=== PATIENT | female | born 2000 | race Caucasian/White ===

== ENCOUNTER 2019-12-16 04:16 | Emergency (ER) | payer OTHER ==
[~2019-12-16] VITALS: Ht 177 cm; Wt 115.0 kg
[2019-12-16] MEDS ORDERED: PROMETHAZINE/ CODEINE SYRUP 5 ML UDC PO STA (04:31)
[2019-12-16] MEDS ORDERED: methylPREDNISolone 125 MG (Solu-MEDROL) VIAL IVP STA (04:31)
[2019-12-16] MEDS ORDERED: NS IV 1000 ML 1,000 ML IV STA (04:31)
--- NOTE | 2019-12-16 04:40 | ED Cough/URI ---
General Chief Complaint: Cough/Cold/Flu Symptoms Stated Complaint: COUGH Source: patient History of Present Illness Date Seen by Provider: Dec 16, 2019 Time Seen by Provider: 04:22 Initial Comments 19 yo F presenting with complaints of cough and congestion that has been going on for over a week. She was seen last week in urgent care and diagnosed with influenza based off of her symptoms. She completed a 5 day course of Tamiflu but did not feel she was any better. She went back to Urgent care on Sunday and they diagnosed her with bronchitis and placed her on Amoxicillin, Tessalon Perles, and Albuterol Nebulized treatments. She has still been coughing to the point that she is not sleeping at night and has not improved. She feels that she has been running a fever but has not taken her temperature. She has not tried to get in to see her PCP, Dr. Bae, but arlin decided to come to the ED because she could not sleep. Allergies and Home Medications Allergies Coded Allergies: No Known Drug Allergies (Unverified , 12/16/19) Home Medications Prednisone 20 Mg Tab, 40 MG PO DAILY Prescribed by: CHER MEYER on 12/16/19 0557 Promethazine HCl/Codeine 5 Ml Syrup, 5 ML PO Q4H PRN for COUGH Prescribed by: CHER MEYER on 12/16/19 0557 Patient Home Medication List Home Medication List Reviewed: Yes Review of Systems Review of Systems Constitutional: chills; No diaphoresis, No dizziness; fever, malaise EENTM: hoarseness, nose congestion, throat pain (from coughing); No ear discharge, No ear pain, No epistaxis Respiratory: cough; No hemoptysis; short of breath; No stridor, No wheezing Cardiovascular: chest pain (from coughing) Gastrointestinal: no symptoms reported Genitourinary: no symptoms reported Musculoskeletal: no symptoms reported Skin: No rash Psychiatric/Neurological: Headache Past Nyonsfv-Sxoiex-Jeflrh Hx Past Med/Social Hx: Reviewed Nursing Past Med/Soc Hx Patient Social History Alcohol Use: Denies Use Recreational Drug Use: No Smoking Status: Never a Smoker 2nd Hand Smoke Exposure: No Recent Foreign Travel: No Contact w/Someone Who Travel: No Recent Hopitalizations: No Physical Abuse: No Sexual Abuse: No Past Medical History Surgeries: Yes Gallbladder Respiratory: No Cardiac: No Neurological: No Genitourinary: No Gastrointestinal: No Musculoskeletal: No Endocrine: No HEENT: No Cancer: No Psychosocial: No Integumentary: No Blood Disorders: No Physical Exam Vital Signs - First Documented 12/16/19 04:23 Temp 37.0 Pulse 105 Resp 18 B/P (MAP) 136/83 (100) Pulse Ox 99 O2 Delivery Room Air Capillary Refill : Height: '" Weight: lbs. oz. kg; BMI Method: General Appearance: WD/WN, no apparent distress HEENT: PERRL/EOMI, pharyngeal erythema; No tonsillar exudate Neck: non-tender, full range of motion, supple, normal inspection Respiratory: lungs clear, normal breath sounds, no respiratory distress, no accessory muscle use Cardiovascular: regular rate, rhythm, no edema, no gallop, no JVD, no murmur, tachycardia Gastrointestinal: normal bowel sounds, non tender, soft Extremities: normal range of motion, non-tender, normal inspection, no pedal edema, normal capillary refill Neurologic/Psychiatric: car washer II-XII nml as tested, no motor/sensory deficits, alert, oriented x 3 Skin: normal color, warm/dry Progress/Results/Core Measures Suspected Sepsis SIRS Temperature: Pulse: Respiratory Rate: Laboratory Tests 12/16/19 04:49: White Blood Count 7.2 Blood Pressure / Mean: Laboratory Tests 12/16/19 04:49: Creatinine 0.70, Platelet Count 308, Total Bilirubin 0.4 Results/Orders Lab Results Laboratory Tests Test 12/16/19 04:49 Range/Units White Blood Count 7.2 4.3-11.0 10^3/uL Red Blood Count 4.87 4.35-5.85 10^6/uL Hemoglobin 12.4 11.5-16.0 G/DL Hematocrit 40 35-52 % Mean Corpuscular Volume 82 80-99 FL Mean Corpuscular Hemoglobin 25 25-34 PG Mean Corpuscular Hemoglobin Concent 31 L 32-36 G/DL Red Cell Distribution Width 13.2 10.0-14.5 % Platelet Count 308 130-400 10^3/uL Mean Platelet Volume 10.1 7.4-10.4 FL Neutrophils (%) (Auto) 58 42-75 % Lymphocytes (%) (Auto) 30 12-44 % Monocytes (%) (Auto) 7 0-12 % Eosinophils (%) (Auto) 4 0-10 % Basophils (%) (Auto) 1 0-10 % Neutrophils # (Auto) 4.2 1.8-7.8 X 10^3 Lymphocytes # (Auto) 2.2 1.0-4.0 X 10^3 Monocytes # (Auto) 0.5 0.0-1.0 X 10^3 Eosinophils # (Auto) 0.3 0.0-0.3 10^3/uL Basophils # (Auto) 0.0 0.0-0.1 10^3/uL Sodium Level 139 135-145 MMOL/L Potassium Level 3.8 3.6-5.0 MMOL/L Chloride Level 104 98-107 MMOL/L Carbon Dioxide Level 24 21-32 MMOL/L Anion Gap 11 5-14 MMOL/L Blood Urea Nitrogen 12 7-18 MG/DL Creatinine 0.70 0.60-1.30 MG/DL Estimat Glomerular Filtration Rate > 60 BUN/Creatinine Ratio 17 Glucose Level 102 70-105 MG/DL Calcium Level 8.8 8.5-10.1 MG/DL Corrected Calcium 8.8 8.5-10.1 MG/DL Total Bilirubin 0.4 0.1-1.0 MG/DL Aspartate Amino Transf (AST/SGOT) 17 5-34 U/L Alanine Aminotransferase (ALT/SGPT) 16 0-55 U/L Alkaline Phosphatase 108 40-136 U/L Total Protein 7.1 6.4-8.2 GM/DL Albumin 4.0 3.2-4.5 GM/DL My Orders Orders - CHER MEYER MD Cbc With Automated Diff (12/16/19 04:31) Comprehensive Metabolic Panel (12/16/19 04:31) Albuterol/Ipra Inhalation Soln (Duoneb I (12/16/19 04:45) Chest Pa/Lat (2 View) (12/16/19 04:31) Ed Iv/Invasive Line Start (12/16/19 04:31) Sputum Culture (12/16/19 04:31) Monitor-Rhythm Ecg Trace Only (12/16/19 04:31) Svn Small Volume Nebulizer (12/16/19 04:31) Methylprednisolone Sod Succ (Solu-Medrol (12/16/19 04:31) Ns Iv 1000 Ml (Sodium Chloride 0.9%) (12/16/19 04:31) Promethazine/ Codeine Syrup (Phenergan W (12/16/19 04:31) Medications Given in ED Current Medications Medications Dose Ordered Sig/Erika Route Start Time Stop Time Status Last Admin Dose Admin Albuterol/ Ipratropium 3 ml ONCE ONCE INH 12/16/19 04:45 12/16/19 04:46 DC 12/16/19 04:45 3 ML Vital Signs/I&O 12/16/19 04:23 Temp 37.0 Pulse 105 Resp 18 B/P (MAP) 136/83 (100) Pulse Ox 99 O2 Delivery Room Air Capillary Refill : Progress Note #1: Progress Note Will check basic labs and CXR. Give duoneb breathing treatment to see if that helps with her cough and shortness of breath sensation. She is saturating 100% on room air. Give solumedrol 125 mg IV to help with inflammation and cough. Order Phenergan with codeine for cough. IVF 1 L NS bolus for hydration since her HR is over 100, especially with movement or exertion. Progress Note #2: Time: 05:34 Progress Note On my review of her 2 view CXR she has no definite infiltrate, effusion or cardiomegaly. Her CBC is normal without acute significant abnormality. Chemistry is pending. She reports she is still coughing but is tired from the cough medicine. Progress Note #3: Time: 05:49 Progress Note Reviewed with the patient the negative results. will continue steroid and phenergan with codeine at home. Push fluids and rest. Check with clinic if still not improving Diagnostic Imaging Diagonstic Imaging: Xray Plain Films/CT/US/NM/MRI: chest Comments On my review of her 2 view cxr she has no definite infiltrate or effusion or cardiomegaly Departure Impression Primary Impression: Upper respiratory infection with cough and congestion Disposition: HOME, SELF-CARE Condition: Stable Departure-Patient Inst. Decision time for Depature: 05:54 Referrals: GABRIELLE BAE DO (PCP/Family) Primary Care Physician Patient Instructions: Cough, Adult (DC), Viral Upper Respiratory Infection, Adult (DC) Add. Discharge Instructions: Try the different cough medicine to help you rest better. The steroid should help with your cough and congestion as well. Use a humidifier or vaporizer at the bedside to help keep your airways moist when you are sleeping. This will help with your cough and the tightness and inflammation in your chest. Check back with Dr. Bae in the clinic if still not improving with treatment All discharge instructions reviewed with patient and/or family. Voiced understanding. Scripts Prednisone (Prednisone) 20 Mg Tab 40 MG PO DAILY for cough/congestion for 5 Days, #10 TAB 0 Refills Prov: CHER MEYER MD 12/16/19 Promethazine HCl/Codeine (Prometh-Codein 6.25-10 mg/5 ml) 5 Ml Syrup 5 ML PO Q4H PRN for COUGH for 5 Days, #120 ML 0 Refills Prov: CHER MEYER MD 12/16/19 Work/School Note: Work Release Form Date Seen in the Emergency Department: Dec 16, 2019 Return to Work: Dec 19, 2019 Restrictions: No Restrictions CHER MEYER MD Dec 16, 2019 04:40
[2019-12-16] MEDS ORDERED: RT-ALBUTEROL/IPRATROPIUM 3 ML (DUONEB) VIAL INH ONE (04:45)
[2019-12-16 05:16] LABS: HEMATOCRIT 40 % (35-52); HEMOGLOBIN 12.4 G/DL (11.5-16.0); MEAN CORPUSCULAR HEMOGLOBIN 25 PG (25-34); WHITE BLOOD COUNT 7.2 10^3/uL (4.3-11.0)
[2019-12-16 05:18] LABS: BASOPHILS % (AUTO) 1 % (0-10); EOSINOPHILS % (AUTO) 4 % (0-10); MEAN CORPUSCULAR HGB CONC 31 G/DL (32-36); MEAN CORPUSCULAR VOLUME 82 FL (80-99); MEAN PLATELET VOLUME 10.1 FL (7.4-10.4); MONOCYTES % (AUTO) 7 % (0-12); NEUTROPHILS % (AUTO) 58 % (42-75); PLATELET COUNT 308 10^3/uL (130-400); RED CELL DISTRIBUTION WIDTH 13.2 % (10.0-14.5)
[2019-12-16 05:20] LABS: EOSINOPHILS # (AUTO) 0.3 10^3/uL (0.0-0.3); LYMPHOCYTES # (AUTO) 2.2 X 10^3 (1.0-4.0); LYMPHOCYTES % (AUTO) 30 % (12-44); MONOCYTES # (AUTO) 0.5 X 10^3 (0.0-1.0); NEUTROPHILS # (AUTO) 4.2 X 10^3 (1.8-7.8)
[2019-12-16 05:35] LABS: ALANINE AMINOTRANSFERASE 16 U/L (0-55); ALKALINE PHOSPHATASE 108 U/L (40-136); BILIRUBIN,TOTAL 0.4 MG/DL (0.1-1.0); BUN/CREATININE RATIO 17; CALCIUM 8.8 MG/DL (8.5-10.1); CARBON DIOXIDE 24 MMOL/L (21-32); CHLORIDE 104 MMOL/L (98-107); GFR ESTIMATED > 60; GLUCOSE 102 MG/DL (70-105); POTASSIUM 3.8 MMOL/L (3.6-5.0); SODIUM 139 MMOL/L (135-145); TOTAL PROTEIN 7.1 GM/DL (6.4-8.2)
[2019-12-16 05:57] VITALS: BP 129/79
[2019-12-16] MEDS ORDERED: PROM5SYR PO (05:57)
[2019-12-16] MEDS ORDERED: PRD20T PO (05:57)
--- NOTE | 2019-12-16 06:19 | Diagnostic Imaging Report ---
PATIENT HISTORY: Cough. TECHNIQUE: Two views of the chest. COMPARISON: None FINDINGS: The lung volumes are normal. No focal consolidation is seen. No large pleural effusion or pneumothorax is seen. The cardiomediastinal silhouette is normal in size and contour. No acute osseous abnormality is seen. IMPRESSION: No acute pulmonary abnormality seen. Dictated by: Dictated on workstation # [id number]
== END 2019-12-16 06:02 | disposition home or self-care (01) ==
LOC: ER FS 04:20
DX: J06.9 Acute upper respiratory infection, unspecified (principal)
CPT/HCPCS: 36415; 71046; 80053; 85025; 93041

== ENCOUNTER 2021-07-26 20:16 | Emergency (ER) | payer OTHER ==
[~2021-07-26 20:16] MED LIST: PRD20T PO; PROM5SYR PO
--- NOTE | 2021-07-26 20:24 | ED General ---
General Stated Complaint: HEART RACING,HIGH BP Source of Information: Patient Exam Limitations: No Limitations History of Present Illness Date Seen by Provider: Jul 26, 2021 Time Seen by Provider: 20:24 Initial Comments 21-year-old G1, P0 at 23 weeks gestation presents with onset of a rapid heart rate 30 minutes prior to arrival. Patient with no significant past medical history and on no medications. Admits that her blood pressure was elevated at her last OB appointment, but when rechecked it had improved. Denies abdominal or pelvic pain, denies vaginal bleeding, discharge or loss of fluid. Allergies and Home Medications Allergies Coded Allergies: No Known Drug Allergies (Unverified , 12/16/19) Patient Home Medication List Home Medication List Reviewed: Yes Prednisone (Prednisone) 20 Mg Tab, 40 MG PO DAILY Prescribed by: CHER MEYER on 12/16/19 0557 Promethazine HCl/Codeine (Prometh-Codein 6.25-10 mg/5 ml) 5 Ml Syrup, 5 ML PO Q4H PRN for COUGH Prescribed by: CHER MEYER on 12/16/19 0557 Review of Systems Review of Systems Constitutional: No fever, No malaise, No weakness Respiratory: No cough, No hemoptysis, No short of breath Cardiovascular: No chest pain, No edema; palpitations (rapid HR); No syncope Gastrointestinal: No abdominal pain, No diarrhea, No loss of appetite, No nausea, No vomiting Genitourinary: no symptoms reported Musculoskeletal: No back pain, No joint pain Skin: No change in color, No rash Past Xsrgosw-Igtjcz-Vdclyh Hx Past Medical History Surgeries: Yes Gallbladder Respiratory: No Cardiac: No Neurological: No Genitourinary: No Gastrointestinal: No Musculoskeletal: No Endocrine: No HEENT: No Cancer: No Psychosocial: No Integumentary: No Blood Disorders: No Physical Exam Vital Signs Vital Signs - First Documented 07/26/21 20:19 Temp 37.1 Pulse 130 Resp 18 B/P (MAP) 172/99 (123) Pulse Ox 99 O2 Delivery Room Air Capillary Refill : Height, Weight, BMI Height: '" Weight: lbs. oz. kg; 36.00 BMI Method: General Appearance: No Apparent Distress, WD/WN HEENT: PERRL/EOMI, Normal ENT Inspection Neck: Full Range of Motion, Supple Respiratory: Chest Non Tender, Lungs Clear, Normal Breath Sounds, No Accessory Muscle Use, No Respiratory Distress Cardiovascular: No Edema, No JVD, Tachycardia Gastrointestinal: Non Tender, Soft Back: Normal Inspection, No CVA Tenderness Extremity: Normal Capillary Refill, Non Tender Neurologic/Psychiatric: Alert, Oriented x3, No Motor/Sensory Deficits Progress/Results/Core Measures Suspected Sepsis SIRS Temperature: Pulse: Respiratory Rate: Laboratory Tests 07/26/21 20:29: White Blood Count 10.9 Blood Pressure / Mean: Laboratory Tests 07/26/21 20:29: Creatinine 0.57L, Platelet Count 292, Total Bilirubin 0.2 Results/Orders Lab Results Laboratory Tests Test 07/26/21 20:29 07/26/21 20:35 Range/Units White Blood Count 10.9 4.3-11.0 10^3/uL Red Blood Count 4.84 3.80-5.11 10^6/uL Hemoglobin 12.5 11.5-16.0 g/dL Hematocrit 39 35-52 % Mean Corpuscular Volume 80 80-99 fL Mean Corpuscular Hemoglobin 26 25-34 pg Mean Corpuscular Hemoglobin Concent 32 32-36 g/dL Red Cell Distribution Width 14.2 10.0-14.5 % Platelet Count 292 130-400 10^3/uL Mean Platelet Volume 10.6 9.0-12.2 fL Immature Granulocyte % (Auto) 0 % Neutrophils (%) (Auto) 74 42-75 % Lymphocytes (%) (Auto) 19 12-44 % Monocytes (%) (Auto) 6 0-12 % Eosinophils (%) (Auto) 1 0-10 % Basophils (%) (Auto) 0 0-10 % Neutrophils # (Auto) 8.1 H 1.8-7.8 X 10^3 Lymphocytes # (Auto) 2.1 1.0-4.0 X 10^3 Monocytes # (Auto) 0.6 0.0-1.0 X 10^3 Eosinophils # (Auto) 0.1 0.0-0.3 10^3/uL Basophils # (Auto) 0.0 0.0-0.1 10^3/uL Immature Granulocyte # (Auto) 0.0 0.0-0.1 10^3/uL Sodium Level 133 L 135-145 MMOL/L Potassium Level 3.5 L 3.6-5.0 MMOL/L Chloride Level 99 98-107 MMOL/L Carbon Dioxide Level 21 21-32 MMOL/L Anion Gap 13 5-14 MMOL/L Blood Urea Nitrogen 9 7-18 MG/DL Creatinine 0.57 L 0.60-1.30 MG/DL Estimat Glomerular Filtration Rate 131 BUN/Creatinine Ratio 16 Glucose Level 108 H 70-105 MG/DL Calcium Level 9.3 8.5-10.1 MG/DL Corrected Calcium 9.5 8.5-10.1 MG/DL Total Bilirubin 0.2 0.1-1.0 MG/DL Aspartate Amino Transf (AST/SGOT) 21 5-34 U/L Alanine Aminotransferase (ALT/SGPT) 20 0-55 U/L Alkaline Phosphatase 87 40-136 U/L Total Protein 7.6 6.4-8.2 GM/DL Albumin 3.8 3.2-4.5 GM/DL Urine Color YELLOW Urine Clarity CLEAR Urine pH 6.0 5-9 Urine Specific [place] 1.020 1.016-1.022 Urine Protein NEGATIVE NEGATIVE Urine Glucose (UA) NEGATIVE NEGATIVE Urine Ketones 1+ H NEGATIVE Urine Nitrite NEGATIVE NEGATIVE Urine Bilirubin NEGATIVE NEGATIVE Urine Urobilinogen 0.2 < = 1.0 MG/DL Urine Leukocyte Esterase NEGATIVE NEGATIVE Urine RBC (Auto) NEGATIVE NEGATIVE Urine RBC NONE /HPF Urine WBC 0-2 /HPF Urine Squamous Epithelial Cells 10-25 H /HPF Urine Crystals NONE /LPF Urine Bacteria TRACE /HPF Urine Casts NONE /LPF Urine Mucus SMALL H /LPF Urine Culture Indicated NO My Orders Orders - ROVENSTINE,GLADIS L DO Ed Iv/Invasive Line Start (07/26/21 20:23) Cbc With Automated Diff (07/26/21 20:23) Comprehensive Metabolic Panel (07/26/21 20:23) Urinalysis (07/26/21 20:23) Ns Iv 1000 Ml (Sodium Chloride 0.9%) (07/26/21 20:30) Potassium Chloride (Tablet) (K Dur Table (07/26/21 21:15) Ns Iv 1000 Ml (Sodium Chloride 0.9%) (07/26/21 21:15) Medications Given in ED Current Medications Medications Dose Ordered Sig/Erika Route Start Time Stop Time Status Last Admin Dose Admin Potassium Chloride 20 meq ONCE ONCE PO 07/26/21 21:15 07/26/21 21:16 DC 07/26/21 21:16 20 MEQ Vital Signs/I&O 07/26/21 20:19 Temp 37.1 Pulse 130 Resp 18 B/P (MAP) 172/99 (123) Pulse Ox 99 O2 Delivery Room Air Capillary Refill : Progress Note : Progress Note Feeling better HR & BP improved (from 130-100 and 170's to 130's systolic resp). No bad habits, reassurance given and advised f/u w Dr Pearson Departure Impression Primary Impression: Sinus tachycardia Additional Impression: Qualified Codes: Z3A.23 - 23 weeks gestation of Disposition: 01 HOME, SELF-CARE Condition: Improved Departure-Patient Inst. Decision time for Depature: 21:35 Referrals: FRANCK PEARSON DO (PCP/Family) Primary Care Physician Patient Instructions: How to Adapt to Physical Changes During Add. Discharge Instructions: Follow up with Dr Pearson in 1 week, ER sooner if worse GLADIS VELASQUEZ DO Jul 26, 2021 20:24
[2021-07-26] MEDS ORDERED: NS IV 1000 ML 1,000 ML IV SCH ×2 (20:30→21:15)
[2021-07-26 20:38] LABS: BILIRUBIN,URINE NEGATIVE (NEGATIVE); CLARITY,URINE CLEAR; COLOR,URINE YELLOW; GLUCOSE, URINE (UA) NEGATIVE (NEGATIVE); KETONES,URINE 1+ (NEGATIVE); LEUKOCYTE ESTERASE ,URINE NEGATIVE (NEGATIVE); NITRITE,URINE NEGATIVE (NEGATIVE); PROTEIN,URINE NEGATIVE (NEGATIVE)
[2021-07-26 20:50] LABS: BACTERIA,URINE TRACE /HPF; WBC,URINE 0-2 /HPF
[2021-07-26 20:51] LABS: BASOPHILS % (AUTO) 0 % (0-10); EOSINOPHILS % (AUTO) 1 % (0-10); HEMATOCRIT 39 % (35-52); HEMOGLOBIN 12.5 g/dL (11.5-16.0); LYMPHOCYTES % (AUTO) 19 % (12-44); MEAN CORPUSCULAR HEMOGLOBIN 26 pg (25-34); MEAN CORPUSCULAR HGB CONC 32 g/dL (32-36); MEAN CORPUSCULAR VOLUME 80 fL (80-99); MEAN PLATELET VOLUME 10.6 fL (9.0-12.2); MONOCYTES % (AUTO) 6 % (0-12); NEUTROPHILS % (AUTO) 74 % (42-75); PLATELET COUNT 292 10^3/uL (130-400); WHITE BLOOD COUNT 10.9 10^3/uL (4.3-11.0)
[2021-07-26 20:52] LABS: EOSINOPHILS # (AUTO) 0.1 10^3/uL (0.0-0.3); LYMPHOCYTES # (AUTO) 2.1 X 10^3 (1.0-4.0); MONOCYTES # (AUTO) 0.6 X 10^3 (0.0-1.0); NEUTROPHILS # (AUTO) 8.1 X 10^3 (1.8-7.8)
[2021-07-26 20:56] LABS: CREATININE SERUM 0.57 MG/DL (0.60-1.30); POTASSIUM 3.5 MMOL/L (3.6-5.0)
[2021-07-26 20:57] LABS: ALBUMIN 3.8 GM/DL (3.2-4.5); BILIRUBIN,TOTAL 0.2 MG/DL (0.1-1.0); CALCIUM 9.3 MG/DL (8.5-10.1); TOTAL PROTEIN 7.6 GM/DL (6.4-8.2)
[2021-07-26] MEDS ORDERED: KCL 20 MEQ TAB (K-DUR) PO ONE (21:15)
[2021-07-26 21:50] VITALS: BP 144/65
== END 2021-07-26 21:57 | disposition home or self-care (01) ==
LOC: EDUNIT# 20:16 → ER FS 20:17
DX: O99.412 Diseases of the circulatory system complicating pregnancy, second trimester (principal); R00.0 Tachycardia, unspecified; Z79.52 Long term (current) use of systemic steroids; Z3A.23 23 weeks gestation of pregnancy
CPT/HCPCS: 36415; 80053; 81000; 85025

== ENCOUNTER 2021-11-15 01:26 | Emergency (ER) | payer OTHER ==
[~2021-11-15] VITALS: Ht 180.3 cm; Wt 118.7 kg
[2021-11-15] MEDS ORDERED: NS IV 1000 ML 1,000 ML IV STA (01:43)
--- NOTE | 2021-11-15 01:53 | ED General ---
General Chief Complaint: General Problems/Pain Stated Complaint: RT SIDE LEG NUMBNESS;DIZZINESS Nursing Triage Note: Patient states that she is 3 days post . Patient states that she has been having numbness in her right thigh since yesterday. Patient also states that she started getting dizzy approximately 1 hour ago. Patient reports having an epidural and a severe tear. 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 She states she is 3 days post and delivered her baby at [facility] with Dr. Espino. She did have high blood pressure with her in the last few months and was on medicine but it was stopped post delivery. She had a tear of her perineum with the delivery. She denies fever, chills, pain with urination, nausea, vomiting, shortness of breath, calf pain, swelling in legs, abdominal pain. She states she feels dizzy and it is worse with standing and changing positions. She did have an epidural for her delivery and they gave her an additional dose of medicine prior to delivery. She is unsure if that is contributing to her right leg tingling or not. She can still feel light touch to the leg but it feels different than the rest of the leg. It is worsened by laying on her right side and seems to be better if up walking. Severity: Moderate Associated Systoms: No Chest Pain, No Cough, No Diaphoresis, No Fever/Chills, No Headaches, No Loss of Appetite, No Malaise, No Nausea/Vomiting, No Rash, No Seizure, No Shortness of Air, No Syncope, No Weakness Allergies and Home Medications Allergies Coded Allergies: Penicillins (Verified Allergy, Unknown, 11/15/21) Uncoded Allergies: Tape (Allergy, Unknown, Rash, 11/15/21) Patient Home Medication List Home Medication List Reviewed: Yes Cephalexin (Cephalexin) 500 Mg Capsule, 500 MG PO TID Prescribed by: CHER MEYER on 11/15/21 0300 Prednisone (Prednisone) 20 Mg Tab, 40 MG PO DAILY Prescribed by: CHER MEYER on 12/16/19 0557 Promethazine HCl/Codeine (Prometh-Codein 6.25-10 mg/5 ml) 5 Ml Syrup, 5 ML PO Q4H PRN for COUGH Prescribed by: CHER MEYER on 12/16/19 0557 Review of Systems Review of Systems Constitutional: No chills; dizziness (in last hour 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 in ED); No fever EENTM: no symptoms reported Respiratory: No cough, No dyspnea on exertion, No short of breath, No stridor, No wheezing Cardiovascular: No chest pain, No edema; palpitations; No syncope Gastrointestinal: No abdominal pain, No nausea, No vomiting Genitourinary: No decreased output, No dysuria, No frequency; other (states her vaginal bleeding has been decreasing since she left the hospital) Musculoskeletal: no symptoms reported Skin: No change in color, No rash Psychiatric/Neurological: See HPI Hematologic/Lymphatic: Denies Blood Clots Past Ekknzbt-Xxuzso-Pjvysl Hx Patient Social History Tobacco Use?: No Substance use?: No Alcohol Use?: No Pt feels they are or have been: No Past Medical History Surgeries: Yes Gallbladder Respiratory: No Cardiac: No Neurological: No Genitourinary: No Gastrointestinal: No Musculoskeletal: No Endocrine: No HEENT: No Cancer: No Psychosocial: No Integumentary: No Blood Disorders: No Physical Exam Vital Signs Vital Signs - First Documented 11/15/21 01:31 Temp 36.6 Pulse 106 Resp 20 B/P (MAP) 146/107 (120) Pulse Ox 96 O2 Delivery Room Air Capillary Refill : Less Than 3 Seconds Height, Weight, BMI Height: '" Weight: lbs. oz. 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 Skin: Normal Color, Warm/Dry Progress/Results/Core Measures Suspected Sepsis SIRS Temperature: Pulse: 106 Respiratory Rate: 20 Laboratory Tests 11/15/21 01:42: White Blood Count 6.2 Blood Pressure 146 /107 Mean: 120 Laboratory Tests 11/15/21 01:42: Creatinine 0.55L, Platelet Count 249, Total Bilirubin 0.3 Results/Orders Lab Results Laboratory Tests Test 11/15/21 01:42 11/15/21 02:15 Range/Units White Blood Count 6.2 4.3-11.0 10^3/uL Red Blood Count 4.13 3.80-5.11 10^6/uL Hemoglobin 9.1 L 11.5-16.0 g/dL Hematocrit 30 L 35-52 % Mean Corpuscular Volume 73 L 80-99 fL Mean Corpuscular Hemoglobin 22 L 25-34 pg Mean Corpuscular Hemoglobin Concent 30 L 32-36 g/dL Red Cell Distribution Width 15.6 H 10.0-14.5 % Platelet Count 249 130-400 10^3/uL Mean Platelet Volume 10.8 9.0-12.2 fL Immature Granulocyte % (Auto) 0 % Neutrophils (%) (Auto) 64 42-75 % Lymphocytes (%) (Auto) 24 12-44 % Monocytes (%) (Auto) 7 0-12 % Eosinophils (%) (Auto) 5 0-10 % Basophils (%) (Auto) 0 0-10 % Neutrophils # (Auto) 4.0 1.8-7.8 10^3/uL Lymphocytes # (Auto) 1.5 1.0-4.0 10^3/uL Monocytes # (Auto) 0.5 0.0-1.0 10^3/uL Eosinophils # (Auto) 0.3 0.0-0.3 10^3/uL Basophils # (Auto) 0.0 0.0-0.1 10^3/uL Immature Granulocyte # (Auto) 0.0 0.0-0.1 10^3/uL Sodium Level 142 135-145 MMOL/L Potassium Level 3.3 L 3.6-5.0 MMOL/L Chloride Level 107 98-107 MMOL/L Carbon Dioxide Level 21 21-32 MMOL/L Anion Gap 14 5-14 MMOL/L Blood Urea Nitrogen 6 L 7-18 MG/DL Creatinine 0.55 L 0.60-1.30 MG/DL Estimat Glomerular Filtration Rate 132 BUN/Creatinine Ratio 11 Glucose Level 95 70-105 MG/DL Calcium Level 8.3 L 8.5-10.1 MG/DL Corrected Calcium 9.1 8.5-10.1 MG/DL Total Bilirubin 0.3 0.1-1.0 MG/DL Aspartate Amino Transf (AST/SGOT) 73 H 5-34 U/L Alanine Aminotransferase (ALT/SGPT) 90 H 0-55 U/L Alkaline Phosphatase 167 H 40-136 U/L Troponin I < 0.30 <0.30 NG/ML Pro-B-Type Natriuretic Peptide 68.8 <75.0 PG/ML Total Protein 6.0 L 6.4-8.2 GM/DL Albumin 3.0 L 3.2-4.5 GM/DL Urine Color YELLOW Urine Clarity CLOUDY Urine pH 6.5 5-9 Urine Specific [place] <=1.005 1.016-1.022 Urine Protein NEGATIVE NEGATIVE Urine Glucose (UA) NEGATIVE NEGATIVE Urine Ketones NEGATIVE NEGATIVE Urine Nitrite NEGATIVE NEGATIVE Urine Bilirubin NEGATIVE NEGATIVE Urine Urobilinogen 0.2 < = 1.0 MG/DL Urine Leukocyte Esterase 3+ H NEGATIVE Urine RBC (Auto) 3+ H NEGATIVE Urine RBC 10-25 H /HPF Urine WBC >100 H /HPF Urine Squamous Epithelial Cells 5-10 /HPF Urine Crystals NONE /LPF Urine Bacteria MODERATE H /HPF Urine Casts NONE /LPF Urine Mucus NEGATIVE /LPF Urine Culture Indicated YES My Orders Orders - CHER MEYER MD Comprehensive Metabolic Panel (11/15/21 01:41) Ua Culture If Indicated (11/15/21 01:41) Ed Iv/Invasive Line Start (11/15/21 01:41) Cbc With Automated Diff (11/15/21 01:41) Ekg Tracing (11/15/21 01:41) Probnp Fs (11/15/21 01:41) Troponin I Fs (11/15/21 01:41) Ns Iv 1000 Ml (Sodium Chloride 0.9%) (11/15/21 01:43) Dexamethasone Injection (Decadron Inje (11/15/21 01:43) Urine Culture (11/15/21 02:15) Ceftriaxone 1 Gm Pre-Mix (Rocephin 1 Gm (11/15/21 02:57) Vital Signs/I&O 11/15/21 01:31 Temp 36.6 Pulse 106 Resp 20 B/P (MAP) 146/107 (120) Pulse Ox 96 O2 Delivery Room Air Capillary Refill : Less Than 3 Seconds Blood Pressure Mean: 120 Progress Note #1: Progress Note Check labs and cardiac enzymes as well as electrocardiogram. Give IV fluids for hydration with 1 L normal saline and see if this helps with her tachycardia and dizziness. Obtain urinalysis to look for signs of infection. Her altered sensation to the right lateral thigh could be related back to her epidural or possibly some meralgia paresthetica or results of her delivery with perineal t ear and pressure and inflammation noted along the femoral nerve. Will give a dose of steroids 10 mg IV Decadron to see if that might help with her symptoms. Reassess after IV fluids and Decadron have infused. Progress Note #2: Time: :23 Progress Note ECG shows sinus tachycardia without ectopy or ischemia. CBC shows normal WBC count of 6.2 and anemia with Hgb 9.1. She was able to provide a urine specimen and this was sent to lab. Chemistry pending. Progress Note #3: Progress Note Chemistry shows mild elevation of LFTs likely due to recent and delivery. UA demonstrates findings for UTI. D/w Dr. Espino and he advised the pt had Hgb around 9 prior to discharge. Will treat UTI and have her follow up for additional evaluation if numbness/tingling does not improve on its own. ECG Initial ECG Impression Date: Nov 15, 2021 Initial ECG Impression Time: 01:40 Initial ECG Rate: 103 Initial ECG Rhythm: S.Tach Initial ECG Comparisson: Unchanged Comment Sinus tachycardia with a heart rate of 103 bpm. IN interval [address] elevation. QT interval 357 ms with a QTc interval 448 ms. Appears similar to prior tracings in the system. Departure Impression Primary Impression: Dizziness Additional Impressions: Sinus tachycardia Paresthesia of right lower extremity anemia Cystitis with hematuria Disposition: 01 HOME, SELF-CARE Condition: Stable Departure-Patient Inst. Decision time for Depature: 02:58 Referrals: FRANCK ESPINO DO (PCP/Family) Primary Care Physician [facility] Call [phone] to get established with provider for primary care Patient Instructions: Dizziness, Adult ED, Paresthesia (DC), Urinary Tract Infection, Adult ED Add. Discharge Instructions: Your Hemoglobin is 9.1, which makes you anemic. This could be contributing to both the dizziness and the tinging/numbness in your body. The Tingling/numbness could be related to inflammation and pressure on the nerves in your pelvis and low back from your recent , delivery and epidural anesthesia. This should improve with time but if it is not improving or if worsening your doctor may need to order tests such as an MRI or a nerve conduction study to help determine better what was causing your symptoms. Stay well hydrated and drink plenty of fluids. Check back with Dr. Espino for continued concerns/problems. Take the full course of antibiotics to treat for urine infection. Consider establishing care with a primary care provider. You could call the [facility] clinic at [phone] to get established with provider from the clinic All discharge instructions reviewed with patient and/or family. Voiced understanding. Scripts Cephalexin (Cephalexin) 500 Mg Capsule 500 MG PO TID for UTI for 7 Days, #21 CAP 0 Refills Prov: CHER MEYER MD 11/15/21 CHER MEYER MD Nov 15, 2021 01:53
[2021-11-15 02:02] LABS: BASOPHILS % (AUTO) 0 % (0-10); EOSINOPHILS # (AUTO) 0.3 10^3/uL (0.0-0.3); EOSINOPHILS % (AUTO) 5 % (0-10); HEMATOCRIT 30 % (35-52); HEMOGLOBIN 9.1 g/dL (11.5-16.0); LYMPHOCYTES # (AUTO) 1.5 10^3/uL (1.0-4.0); LYMPHOCYTES % (AUTO) 24 % (12-44); MEAN CORPUSCULAR HEMOGLOBIN 22 pg (25-34); MEAN CORPUSCULAR HGB CONC 30 g/dL (32-36); MEAN CORPUSCULAR VOLUME 73 fL (80-99); MEAN PLATELET VOLUME 10.8 fL (9.0-12.2); MONOCYTES # (AUTO) 0.5 10^3/uL (0.0-1.0); MONOCYTES % (AUTO) 7 % (0-12); NEUTROPHILS % (AUTO) 64 % (42-75); PLATELET COUNT 249 10^3/uL (130-400); WHITE BLOOD COUNT 6.2 10^3/uL (4.3-11.0)
[2021-11-15 02:24] LABS: BILIRUBIN,URINE NEGATIVE (NEGATIVE); CLARITY,URINE CLOUDY; COLOR,URINE YELLOW; GLUCOSE, URINE (UA) NEGATIVE (NEGATIVE); KETONES,URINE NEGATIVE (NEGATIVE); LEUKOCYTE ESTERASE ,URINE 3+ (NEGATIVE); NITRITE,URINE NEGATIVE (NEGATIVE); PH,URINE 6.5 (5-9); PROTEIN,URINE NEGATIVE (NEGATIVE)
[2021-11-15 02:31] LABS: BACTERIA,URINE MODERATE /HPF; WBC,URINE >100 /HPF
[2021-11-15 02:35] LABS: ALANINE AMINOTRANSFERASE 90 U/L (0-55); ALKALINE PHOSPHATASE 167 U/L (40-136); BILIRUBIN,TOTAL 0.3 MG/DL (0.1-1.0); BUN/CREATININE RATIO 11; CALCIUM 8.3 MG/DL (8.5-10.1); CARBON DIOXIDE 21 MMOL/L (21-32); CHLORIDE 107 MMOL/L (98-107); CREATININE SERUM 0.55 MG/DL (0.60-1.30); GFR ESTIMATED 132; GLUCOSE 95 MG/DL (70-105); POTASSIUM 3.3 MMOL/L (3.6-5.0); SODIUM 142 MMOL/L (135-145)
[2021-11-15] MEDS ORDERED: cefTRIAXone 1 GM PRE-MIX 50 ML IV STA (02:57)
[2021-11-15] MEDS ORDERED: CEPH500C PO (03:00)
[2021-11-15 03:09] VITALS: BP 136/98
== END 2021-11-15 03:09 | disposition home or self-care (01) ==
LOC: EDUNIT# 01:26 → ER FS 01:28
DX: R42 Dizziness and giddiness (principal); R00.0 Tachycardia, unspecified; R20.2 Paresthesia of skin; O90.81 Anemia of the puerperium; N30.91 Cystitis, unspecified with hematuria; E66.9 Obesity, unspecified
CPT/HCPCS: 36415; 80053; 81000; 83880; 84484; 85025; 87088; 93005

== ENCOUNTER 2022-03-29 16:52 | Emergency (ER) | payer OTHER, MEDICAID ==
[~2022-03-29] VITALS: Ht 170 cm; Wt 117.0 kg
[~2022-03-29 16:52] MED LIST changes: +CEPH500C PO
[2022-03-29 17:01] VITALS: BP 198/105
--- NOTE | 2022-03-29 17:14 | ED Back Pain ---
General Chief Complaint: Back Problems Stated Complaint: WC,BACK PAIN Source of Information: Patient Exam Limitations: No Limitations History of Present Illness Date Seen by Provider: Mar 29, 2022 Time Seen by Provider: 16:45 Initial Comments Patient is a 21 year old female who presents with acute low back pain after heavy lifting earlier to day at work. No lower extremity weakness or loss or sensation. Non radiating. Pain is [id number]-[id number]-mvalir and worse with palpation. No medications or therapies prior to arrival. Location: Lumbar Spine, Paraspinous Muscles Timing/Duration: 4-6 Hours Severity: Moderate Pain/Injury Location: Other Radiation: Other Method of Injury: Other Modifying Factors: Improves With Other Allergies and Home Medications Allergies Coded Allergies: Penicillins (Verified Allergy, Unknown, 11/15/21) Uncoded Allergies: Tape (Allergy, Unknown, Rash, 11/15/21) Patient Home Medication List Home Medication List Reviewed: Yes Cephalexin (Cephalexin) 500 Mg Capsule, 500 MG PO TID Prescribed by: CHER MEYER on 11/15/21 0300 Prednisone (Prednisone) 20 Mg Tab, 40 MG PO DAILY Prescribed by: CHER MEYER on 12/16/19 0557 Promethazine HCl/Codeine (Prometh-Codein 6.25-10 mg/5 ml) 5 Ml Syrup, 5 ML PO Q4H PRN for COUGH Prescribed by: CHER MEYER on 12/16/19 0557 Review of Systems Constitutional: see HPI EENTM: see HPI Respiratory: see HPI Cardiovascular: see HPI Gastrointestinal: no symptoms reported Genitourinary: see HPI Musculoskeletal: see HPI Skin: see HPI Psychiatric/Neurological: See HPI All Other Systems Reviewed Negative Unless Noted: Yes Past Xxxbzoe-Mkldan-Veymdp Hx Patient Social History Tobacco Use?: Yes Use of E-Cig and/or Vaping dev: No Substance use?: No Alcohol Use?: No Pt feels they are or have been: No Past Medical History Surgeries: Yes Gallbladder Respiratory: No Cardiac: No Neurological: No Genitourinary: No Gastrointestinal: No Musculoskeletal: No Endocrine: No HEENT: No Cancer: No Psychosocial: No Integumentary: No Blood Disorders: No Physical Exam Vital Signs Capillary Refill : Height, Weight, BMI Height: '" Weight: lbs. oz. kg; 36.00 BMI Method: General Appearance: No Apparent Distress, WD/WN HEENT: PERRL/EOMI Cardiovascular: Regular Rate, Rhythm Back: No CVA Tenderness, No Vertebral Tenderness, Decreased Range of Motion (Lumbar spasm), Muscle Spasm Neurologic/Psychiatric: Oriented x3, No Motor/Sensory Deficits Progress/Results/Core Measures Results/Orders My Orders Orders - GAGANDEEP VERMA DO Oxycodone/Apap 5/325mg Tablet (Percocet (03/29/22 17:15) Cyclobenzaprine Tablet (Flexeril Tablet) (03/29/22 17:15) Departure Impression Primary Impression: Acute lumbar myofascial strain Disposition: HOME, SELF-CARE Condition: Stable Departure-Patient Inst. Decision time for Depature: 17:15 Referrals: WILBUR RUFFIN MD (PCP/Family) Primary Care Physician Patient Instructions: Low Back Pain ED Add. Discharge Instructions: Please go home and rest. Apply ice to the affected area. Avoid strenuous physical activity and heavy lifting. Take newly prescribed medications as directed. All discharge instructions reviewed with patient and/or family. Voiced understanding. Scripts Hydrocodone/Acetaminophen (Hydrocodone-Acetamin 5-325 mg) 5 Mg-325 Mg Tablet 1 TAB PO Q4H PRN for PAIN-MODERATE (5-7), #12 TAB Prov: GAGANDEEP VERMA DO 03/29/22 Cyclobenzaprine HCl (Cyclobenzaprine HCl) 10 Mg Tablet 10 MG PO TID PRN for prn, #30 TAB Prov: GAGANDEEP VERMA DO 03/29/22 GAGANDEEP VERMA DO Mar 29, 2022 17:14
[2022-03-29] MEDS ORDERED: CYCLOBENZAPRINE 10 MG (FLEXERIL) TAB PO SCH (17:15)
[2022-03-29] MEDS ORDERED: oxyCODONE/APAP 5/325MG (PERCOCET 5) TABLET PO ONE (17:15)
[2022-03-29] MEDS ORDERED: ACHD5005 PO (17:20)
[2022-03-29] MEDS ORDERED: CYCL10TA25 PO (17:20)
== END 2022-03-29 17:31 | disposition home or self-care (01) ==
LOC: EDUNIT# 16:52 → ER FS 16:53
DX: S39.012A Strain of muscle, fascia and tendon of lower back, initial encounter (principal); X50.0XXA Overexertion from strenuous movement or load, initial encounter; Y92.59 Other trade areas as the place of occurrence of the external cause; Y99.0 Civilian activity done for income or pay
CPT/HCPCS: 99283